=== PATIENT | male | born 1955 | race Asian ===

== ENCOUNTER 2020-05-21 09:46 | Emergency (ER) | payer OTHER ==
[~2020-05-21] VITALS: Ht 182.9 cm; Wt 74.8 kg
[2020-05-21 12:35] VITALS: BP 138/72; TEMP 98.5
== END 2020-05-21 12:35 | disposition home or self-care (01) ==
LOC: ED 09:46
DX: S66.112A Strain of flexor muscle, fascia and tendon of right middle finger at wrist and hand level, initial encounter (principal); I10 Essential (primary) hypertension; F17.210 Nicotine dependence, cigarettes, uncomplicated; W18.39XA Other fall on same level, initial encounter; Y92.89 Other specified places as the place of occurrence of the external cause
CPT/HCPCS: 96374; 96375; 99284; J0360

== ENCOUNTER 2022-06-17 08:47 | Emergency (ER) | payer OTHER ==
[~2022-06-17] VITALS: Ht 185.4 cm; Wt 83.9 kg
[2022-06-17 08:50] VITALS: TEMP 98.2
[2022-06-17 09:34] LABS: PLATELET COUNT 219 K/uL (142-355)
[2022-06-17 09:41] LABS: POTASSIUM 4.3 mmol/L (3.6-5.2)
[2022-06-17 11:57] VITALS: BP 164/83
== END 2022-06-17 12:02 | disposition home or self-care (01) ==
LOC: ED 08:47
PROVIDERS: Emergency Medicine
DX: R10.11 Right upper quadrant pain (principal); I10 Essential (primary) hypertension; F17.210 Nicotine dependence, cigarettes, uncomplicated
CPT/HCPCS: 36415; 80053; 80320; 82150; 83690; 84484; 85027; 93005; 96374; 99284; J0360; Q9963